=== PATIENT | female | born 1975 | race Hispanic/Latino ===

== ENCOUNTER 2017-09-10 14:14 | Emergency (ER) | payer OTHER ==
[2017-09-10 14:30] VITALS: RESP 20; O2SAT 100
[2017-09-10] MEDS ORDERED: cefTRIAXone (Rocephin) 250 mg Inj IM ONE (17:10)
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
[2017-09-10 18:17] LABS: SQUAMOUS EPITHIAL 2 /hpf (0-5); URINE BACTERIA RARE (<OCC); URINE BILIRUBIN NEGATIVE (NEGATIVE); URINE BLOOD NEGATIVE (NEGATIVE); URINE CLARITY Hazy (Clear); URINE COLOR Yellow (YELLOW); URINE GLUCOSE (UA) NORMAL (Normal); URINE LEUKOCYTE ESTERASE NEG Leu/uL (Negative); URINE PROTEIN NEGATIVE (NEGATIVE); URINE UROBILINOGEN NORMAL mg/dL (0.2-1.0)
[2017-09-10 19:38] VITALS: BP 128/82; PULSE 81; TEMP 98.1
== END 2017-09-10 20:03 | disposition home or self-care (01) ==
LOC: EDBD 14:14 → C.ER 14:14
DX: Z04.41 Encounter for examination and observation following alleged adult rape (principal)
CPT/HCPCS: 81001; 84703; 86592; 86703; 86706; 87491; 87591; 96372; 99285; J0696